=== PATIENT | male | born 1950 | race Caucasian/White ===

== ENCOUNTER 2016-09-03 15:43 | Inpatient (IN) | payer MEDICARE, BC ==
[~2016-09-03] VITALS: Ht 167.6 cm; Wt 69.5 kg
[2016-09-03 17:00] LABS: HEMOGLOBIN 14.6 gm/dl (14.0-17.5); RED BLOOD COUNT 4.64 M/UL (4.20-5.50); WHITE BLOOD COUNT 13.7 K/UL (4.5-11.0)
[2016-09-03 17:12] LABS: BUN/CREATININE RATIO 11 (0-10)
[2016-09-03] MEDS ORDERED: LIPITOR80 MG PO (22:42)
[2016-09-03] MEDS ORDERED: ASPIR 8181 MG PO (22:43)
[2016-09-03] MEDS ORDERED: NORVASC 5 MG TAB5 MG PO (22:44)
[2016-09-03] MEDS ORDERED: MULTI-VITAMIN1 EACH PO (22:44)
[2016-09-04] MEDS ORDERED: LOVENOX SY40 MG/0.4 SQ (13:28)
[2016-09-04] MEDS ORDERED: PERCOCET 5-3251 EACH PO (13:29)
[2016-09-04] MEDS ORDERED: AUGMENTIN TAB875 MG PO (13:30)
== END 2016-09-04 14:25 | disposition home health service (06) | DRG 494 ==
LOC: ER1 15:43 → M/S 17:02 → ZEROF 17:02 → M/S 21:02
PROVIDERS: Emergency Medicine; ADMIT Orthopaedic Surgery
PROC: 0QSH35Z Reposition Left Tibia with External Fixation Device, Percutaneous Approach (ICD-10-PCS; principal; 2016-09-03 19:41)
DX: S82.852B Displaced trimalleolar fracture of left lower leg, initial encounter for open fracture type I or II (principal); W17.89XA Other fall from one level to another, initial encounter; Y92.007 Garden or yard of unspecified non-institutional (private) residence as the place of occurrence of the external cause; I25.10 Atherosclerotic heart disease of native coronary artery without angina pectoris; F17.210 Nicotine dependence, cigarettes, uncomplicated; I10 Essential (primary) hypertension; Z95.1 Presence of aortocoronary bypass graft
CPT/HCPCS: 36415; 71010; 73610; 76000; 80053; 85025; 85610; 85730; 90471; 90715; 96365; 96375; 99284; C1713; J0690; J1200; J1580; J1650; J2250; J2270; J2405; J3010; J7050; J7120

== ENCOUNTER 2016-09-19 08:24 | Observation (INO) | payer MEDICARE, BC ==
[~2016-09-19] VITALS: Ht 167.6 cm; Wt 62.1 kg
[~2016-09-19 08:24] MED LIST: ASPIR 8181 MG PO; AUGMENTIN TAB875 MG PO; LIPITOR80 MG PO; LOVENOX SY40 MG/0.4 SQ; MULTI-VITAMIN1 EACH PO; NORVASC 5 MG TAB5 MG PO; PERCOCET 5-3251 EACH PO
[2016-09-20] MEDS ORDERED: LOVENOX SY40 MG/0.4 SQ (11:47)
[2016-09-20] MEDS ORDERED: PERCOCET 5-3251 EACH PO (11:48)
== END 2016-09-20 13:15 | disposition home or self-care (01) ==
LOC: OR 08:24 → M/S 16:15 → OR 16:38 → M/S 09-20 13:15
PROVIDERS: ADMIT Orthopaedic Surgery
PROC: 0QSK04Z Reposition Left Fibula with Internal Fixation Device, Open Approach (ICD-10-PCS; 2016-09-19)
PROC: 0QSH04Z Reposition Left Tibia with Internal Fixation Device, Open Approach (ICD-10-PCS; 2016-09-19)
PROC: 0SSG04Z Reposition Left Ankle Joint with Internal Fixation Device, Open Approach (ICD-10-PCS; 2016-09-19)
PROC: 0SPGX5Z Removal of External Fixation Device from Left Ankle Joint, External Approach (ICD-10-PCS; principal; 2016-09-19 10:00)
DX: S82.852A Displaced trimalleolar fracture of left lower leg, initial encounter for closed fracture (principal); I10 Essential (primary) hypertension; I25.2 Old myocardial infarction; I25.10 Atherosclerotic heart disease of native coronary artery without angina pectoris; J44.9 Chronic obstructive pulmonary disease, unspecified; F17.210 Nicotine dependence, cigarettes, uncomplicated; W17.89XA Other fall from one level to another, initial encounter; Z86.010 Personal history of colon polyps; Z82.49 Family history of ischemic heart disease and other diseases of the circulatory system; Z82.3 Family history of stroke; Z79.891 Long term (current) use of opiate analgesic; Z79.899 Other long term (current) drug therapy; Z95.1 Presence of aortocoronary bypass graft; Z98.890 Other specified postprocedural states
CPT/HCPCS: 73610; 96365; 96366; 96372; 97116; 97530; C1713; G0378; J0690; J1100; J1650; J2250; J2270; J2405; J2795; J3010; J7050; J7120